=== PATIENT | male | born 1985 | race African-American/Black ===

== ENCOUNTER 2019-12-15 23:55 | Emergency (ER) | payer OTHER ==
[~2019-12-15] VITALS: Ht 165.1 cm; Wt 113.4 kg
[2019-12-16 00:25] LABS: PLATELET COUNT 207 K/uL (142-355)
[2019-12-16 00:33] LABS: POTASSIUM 3.8 mmol/L (3.6-5.2); SODIUM 136 mmol/L (136-145)
[2019-12-16 00:48] LABS: PARTIAL THROMBOPLASTIN TIME 29.3 SECONDS (24.5-33.6)
[2019-12-16 04:25] VITALS: BP 125/74; TEMP 98.9
== END 2019-12-16 04:25 | disposition home or self-care (01) ==
LOC: ED 23:55
PROVIDERS: Emergency Medicine
DX: R07.89 Other chest pain (principal)
CPT/HCPCS: 36415; 80053; 82550; 83880; 84484; 85027; 85379; 85610; 85730; 93005; 99284